=== PATIENT | male | born 1940 | race Caucasian/White ===

== ENCOUNTER 2021-11-20 10:12 | Outpatient (CLI) | payer MEDICARE ==
[2021-11-20] MEDS ORDERED: Iopamidol-370 76% 500 ML 1 ML ONE (10:22)
[2021-11-20 10:50] LABS: Estimated GFR-MDRD - POC Greater than 90
== END 2021-11-20 10:13 | disposition home or self-care (01) ==
LOC: BICCT 10:12
PROVIDERS: ATTEND Internal Medicine Gastroenterology
DX: K56.699 Other intestinal obstruction unspecified as to partial versus complete obstruction (principal); R14.0 Abdominal distension (gaseous); R19.4 Change in bowel habit; K57.30 Diverticulosis of large intestine without perforation or abscess without bleeding; N28.1 Cyst of kidney, acquired; K63.89 Other specified diseases of intestine
CPT/HCPCS: 74177; 82565; Q9967

== ENCOUNTER 2022-09-11 08:49 | Emergency (ER) | payer MEDICARE | END 2022-09-11 09:39 | disposition home or self-care (01) | LOC: ERS 08:49 | DX: J34.89 Other specified disorders of nose and nasal sinuses (principal); I10 Essential (primary) hypertension; E03.9 Hypothyroidism, unspecified; Z79.899 Other long term (current) drug therapy | CPT/HCPCS: 99283 ==

== ENCOUNTER 2022-09-14 07:23 | Outpatient (CLI) | payer MEDICARE ==
[2022-09-10 09:56] VITALS: BMI 23.7
[~2022-09-14 07:23] MED LIST: FLU VACC QS2022-23(65YR UP)/PF 240 MCG/0.7 ML SYRINGE IM ONE
[2022-09-14 07:49] LABS: #Basophils 0.1 thou/uL (0.0-0.2); #Eosinphils 0.4 thou/uL (0.0-0.7); #Lymphocytes 3.2 thou/uL (1.20-3.40); #Monocytes 1.4 thou/uL (0.11-0.59); #Neutrophils 13.9 thou/uL (1.40-6.50); %Basophils 0.5 % (0.0-1.0); %Eosinophils 2.3 % (0.0-10.0); %Lymphocytes 16.6 % (21.0-51.0); %Monocytes 7.2 % (0.0-10.0); %Neutrophils 73.3 % (42.0-75.0); Hemoglobin 14.3 g/dL (14.0-18.0); Mean Corpuscular HGB CONC 32.4 g/dL (32.0-36.0); Mean Corpuscular Hemoglobin 34.5 pg (27.0-31.0); Mean Platelet Volume 6.8 fL (7.4-10.4); Platelet Count 387 10x3/uL (130-400); RBC Distribution Width 11.4 % (11.5-14.5); Red Blood Cell (RBC) Count 4.15 mill/uL (4.70-6.10)
[2022-09-14 07:54] LABS: INR-International Normal Ratio 1.1; PTT 30.4 sec (22.9-36.1); Prothrombin Time 14.4 sec (12.0-14.7)
[2022-09-14] MEDS ORDERED: Amlodipine 5 MG TAB PO SCH (08:45)
[2022-09-14 08:57] VITALS: BP 169/71; TEMP 98.9
[2022-09-14] MEDS ORDERED: FENTANYL 50 MCG/ML 1 ML VIAL ONE (09:05)
[2022-09-14] MEDS ORDERED: Midazolam HCl 2 mg/2 ml Vial ONE (09:06)
[2022-09-14] MEDS ORDERED: Sodium Bicarbonate 2.5 MEQ/5 ML VIAL ONE (09:06)
[2022-09-14] MEDS ORDERED: Lidocaine 2% PF 5 ML VIAL ONE (09:06)
== END 2022-09-14 11:30 | disposition home or self-care (01) ==
LOC: ULT 07:23
PROVIDERS: ATTEND Internal Medicine Gastroenterology
DX: R93.3 Abnormal findings on diagnostic imaging of other parts of digestive tract (principal); K74.60 Unspecified cirrhosis of liver
CPT/HCPCS: 36415; 47000; 76942; 85025; 85610; 85730; 88307; 88313; J2001; J2250; J3010